=== PATIENT | male | born 1975 | race Caucasian/White ===

== ENCOUNTER 2016-08-25 06:20 | Emergency (ER) | payer OTHER ==
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
[~2016-08-25 06:20] MED LIST: DARVOCET-N 1001 TAB PO; FLEXERIL PO; IBUPROFEN PO; MOBIC PO; PHENERGAN25 MG PO; TYLENOL #3 PO; VICODIN PO
[2016-08-25] MEDS ORDERED: NO MEDICATIONS (06:33)
== END 2016-08-25 08:20 | disposition home or self-care (01) ==
LOC: SED 06:20
DX: S90.32XA Contusion of left foot, initial encounter (principal); F17.200 Nicotine dependence, unspecified, uncomplicated; W22.8XXA Striking against or struck by other objects, initial encounter; Y92.69 Other specified industrial and construction area as the place of occurrence of the external cause; Y99.0 Civilian activity done for income or pay; Z23 Encounter for immunization
CPT/HCPCS: 73630; 90471; 90715; 96372; 99283; J1885

== ENCOUNTER 2016-09-20 03:09 | Emergency (ER) | payer OTHER ==
[~2016-09-20 03:09] MED LIST changes: +NO MEDICATIONS
[2016-09-20 04:06] LABS: URINE SOURCE CLEAN CATCH
[2016-09-20 04:08] LABS: MICRO INDICATED? NO; URINE APPEARANCE CLEAR; URINE BILIRUBIN NEG (NEG); URINE BLOOD NEG (NEG); URINE COLOR YELLOW; URINE GLUCOSE NEG (NORM); URINE KETONE NEG (NEG); URINE LEUKOCYTE ESTERASE NEG (NEG); URINE NITRATE NEG (NEG); URINE PROTEIN NEG (NEG); URINE SPECIFIC GRAVITY >=1.030 (1.003-1.035); URINE UROBILINOGEN 0.2 MG/DL (NORM)
== END 2016-09-20 04:22 | disposition home or self-care (01) ==
LOC: SED 03:09
PROVIDERS: Emergency Medicine
DX: R10.9 Unspecified abdominal pain (principal); R19.7 Diarrhea, unspecified; F17.200 Nicotine dependence, unspecified, uncomplicated
CPT/HCPCS: 81003; 99284